=== PATIENT | male | born 1935 | race Caucasian/White ===

== ENCOUNTER 2017-02-23 19:36 | Emergency (ER) | payer OTHER ==
--- NOTE | 2017-02-23 19:45 | ED Physician Documentation ---
Abdominal Pain - HISTORIAN Historian: patient - HPI Chief Complaint: Abdominal Pain Onset: days ago (yesterday) Duration: waxing, waning Context: denies: out of country travel, bad food Severity: moderate Quality: pain, aching, burning Associated Symptoms: nausea, vomiting, coffee ground emesis (?), diarrhea (mild) . denies: fever, chills, bloody stools, grossly bloody stools Exacerbated by: nothing Relieved by: nothing Further Comments: yes (Patient states that he has been having some nausea/ vomiting, had some reddess brown emisis. Has vomited about 20 times today. Had some mild diarhea. Last BM was 2 hours ago and formed. No fever or chills noted. No trouble urinating noted.) - ROS CONST: no problems GI/: bloody stools. denies: black stools, bloody urine, dark urine - SOCIAL HX Smoking History: non-smoker Alcohol Use: none Drug Use: none - FAMILY HX Family History: other (dementia) - PAST HX Past History: GERD Ischemic Bowel Risk Factors: none Other History: other (GERDs, BPH, Allergic rhinnitis, L ingunial hernia, OA) Surgeries/Procedures: other (TURP, R inguinl hernia, tonsilectomy, adenoidectomy ) Immunizations: denies: influenza, pneumovax, zostavax Allergies/Adverse Reactions: Allergies Allergy/AdvReac Type Severity Reaction Status Date / Time No Known Allergies Allergy Verified 02/23/17 19:45 - VITAL SIGNS Vital Signs: Vital Signs Temp Pulse Resp BP Pulse Ox 97.9 F 85 16 153/63 98 02/23/17 21:15 02/23/17 21:15 02/23/17 21:15 02/23/17 21:15 02/23/17 21:15 - REVIEWED ASSESSMENTS Nursing Assessment Reviewed: Yes Vitals Reviewed: Yes Progress - Progress Progress: 20:07 Rectal done, stool guiac negative 21:11 Patient is still nauseated, no further vomiting noted. 22:38 Attempts made to insert NG tube but unsuccessful Oral gastric tube place and draining ED Results Lab/Radiology - Lab Results Lab Results: Lab Results 02/23/17 02/23/17 02/23/17 19:55 19:55 19:55 WBC 13.00 K/ul H K/ul (4.00-12.00) RBC 4.16 M/ul M/ul (3.90-5.20) Hgb 13.2 g/dL g/dL (12.0-18.0) Hct 39.9 % % (37.0-53.0) MCV 95.7 fl fl (80.0-100.0) MCH 31.7 pg pg (28.0-34.0) MCHC 33.1 g/dL g/dL (30.0-36.0) RDW 13.7 % % (11.3-14.3) Plt Count 238 K/mm3 K/mm3 (130-400) Neut % (Auto) 80.7 % H % (39.0-79.0) Lymph % (Auto) 13.1 % L % (16.0-50.0) [place] % (Auto) 3.7 % % (0.0-11.0) Eos % (Auto) 1.0 % % (0.0-6.8) Baso % (Auto) 0.3 (0.0-1.5) Neut # (Auto) 10.5 # k/uL H # k/uL (1.4-7.7) Lymph # (Auto) 1.7 # k/uL # k/uL (0.6-4.0) [place] # (Auto) 0.5 # k/uL # k/uL (0.0-0.9) Eos # (Auto) 0.1 # k/uL # k/uL (0.0-0.6) Baso # (Auto) 0.0 # k/uL # k/uL (0.0-0.5) Reactive Lymphs % 1.1 % % (0.0-5.0) Reactive Lymphs # 0.2 # k/uL # k/uL (0.0-0.8) PT 11.5 Seconds Seconds (9.4-11.6) INR 1.10 (0.9-1.2) Sodium 142 mmol/L mmol/L (137-145) Potassium 2.8 mmol/L L mmol/L (3.5-5.1) Chloride 94 mmol/L L mmol/L (98-107) Carbon Dioxide 39 mmol/L H mmol/L (22-30) BUN 21 mg/dL H mg/dL (9-20) Creatinine 0.80 mg/dL mg/dL (0.66-1.25) Estimated Creat Clear 55 Est GFR ( Amer) > 60 (60 - ) Est GFR (Non-Af Amer) > 60 (60 - ) Glucose 154 mg/dL H mg/dL (74-106) Calcium 9.5 mg/dL mg/dL (8.4-10.2) Total Bilirubin 0.5 mg/dL mg/dL (0.2-1.3) AST 35 U/L U/L (15-46) ALT 39 U/L U/L (13-69) Alkaline Phosphatase 125 U/L U/L (38-126) Total Protein 7.6 g/dL g/dL (6.3-8.2) Albumin 3.8 g/dL g/dL (3.5-5.0) - Orders Orders: ED Orders Category Date Time Status [employer] [Telemetry] NOW Care 02/23/17 20:[address] IV Lock 1T Care 02/23/17 19:[address] ABD & PELVIS W/ CON Stat Exams 02/23/17 Ordered CBC/PLATELET/DIFF Routine Lab 02/23/17 19:55 Completed CMP Routine Lab 02/23/17 19:55 Completed HEMOCCULT #1 Stat Lab 02/23/17 20:09 Ordered PT [PT-INR] Routine Lab 02/23/17 19:55 Completed 0.9 % Sodium Chloride [Normal Saline] 1,000 ml Med 02/23/17 19:47 Discontinued IV .STK-MED 0.9 % Sodium Chloride [Normal Saline] 1,000 ml Med 02/23/17 19:48 Discontinued IV Q1H 0.9 % Sodium Chloride [Sodium Chloride] 50 ml Med 02/23/17 19:47 Discontinued IV .STK-MED Ondansetron HCl/Pf [Zofran 4 mg/2 ml] Med 02/23/17 19:47 Discontinued 4 mg .ROUTE .STK-MED ONE Ondansetron HCl/Pf [Zofran 4 mg/2 ml] Med 02/23/17 19:47 Discontinued 4 mg IVP NOW ONE Pantoprazole Sodium [Protonix] Med 02/23/17 19:47 Discontinued 40 mg .ROUTE .STK-MED ONE Pantoprazole Sodium [Protonix] 40 mg Med 02/23/17 20:00 Ordered 0.9 % Sodium Chloride [Sodium Chloride] 50 ml IV DAILY Potassium Chloride 40 Meq/Ns [Potassium 40 Meq/Ns 1000 Med 02/23/17 20:15 Discontinued ml] 1,000 ml IV .STK-MED Potassium Chloride [Klor-Con 10 Meq/5 ml] 40 meq Med 02/23/17 20:15 Discontinued 0.9 % Sodium Chloride [Normal Saline] 1,000 ml IV Q1H Oxygen Daily Oxygen 02/23/17 20:15 Ordered Abdominal Pain Physical Exam - Physical Exam General Appearance: alert, mild distress EENT: scleral icterus RESPIRATORY: no resp distress, chest non-tender, breath sounds normal. No: wheezes, rales, rhonchi CVS: reg rate & rhythm, heart sounds normal, equal pulses, no murmur, no gallop ABDOMEN: soft, no distension, tenderness (over epigastric area), decreased BS. No: rigid, rebound, guarding MALE GENITAL: other (large left inguinal hernia,some discomfort with attempts to reduce) BACK: normal inspection SKIN: warm/dry, normal color EXTREMITIES: no edema NEURO: oriented X3, CN's nml as tested, mood/affect nml, cognition normal Vital Signs: Vital Signs Temp Pulse Resp BP Pulse Ox 97.9 F 85 16 153/63 98 02/23/17 21:15 02/23/17 21:15 02/23/17 21:15 02/23/17 21:15 02/23/17 21:15 Discharge Clincal Impression: Upper gastrointestinal bleed Decision to Admit: [id number] Date of Decison to Admit: 02/23/17 Decision Time: 20:38
[2017-02-23] MEDS ORDERED: ONDANSETRON HCL/PF 4 MG/ 2ML VIAL ONE (19:47)
[2017-02-23] MEDS ORDERED: 0.9 % SODIUM CHLORIDE 1,000 ML IV ONE ×2 (19:47→23:03)
[2017-02-23] MEDS ORDERED: 0.9 % SODIUM CHLORIDE 50 ML IV ONE (19:47)
[2017-02-23] MEDS ORDERED: PANTOPRAZOLE SODIUM INJ. 40 MG VIAL ONE (19:47)
[2017-02-23] MEDS: PANTOPRAZOLE SODIUM 40 MG in 0.9 % SODIUM CHLORIDE 50 ML IV SCH (19:50)
[2017-02-23] MEDS: 0.9 % SODIUM CHLORIDE 1,000 ML IV ONE (19:50)
[2017-02-23] MEDS: ONDANSETRON HCL/PF 4 MG/ 2ML VIAL IVP ONE (19:52)
[2017-02-23 20:02] LABS: BASOPHILS % 0.3 (0.0-1.5); MEAN CORPUSCULAR HEMOGLOBIN 31.7 pg (28.0-34.0); MEAN CORPUSCULAR VOLUME 95.7 fl (80.0-100.0); MONOCYTES % 3.7 % (0.0-11.0); NEUTROPHILS # 10.5 # k/uL (1.4-7.7)
[2017-02-23 20:06] LABS: eGFR (African) > 60; eGFR (Non-African) > 60
[2017-02-23] MEDS: 0.9 % SODIUM CHLORIDE 1,000 ML with POTASSIUM CHLORIDE 40 MEQ IV ONE ×2 (20:10)
[2017-02-23] MEDS ORDERED: POTASSIUM CHLORIDE 40 MEQ/NS 1,000 ML IV ONE (20:15)
[2017-02-23] MEDS ORDERED: 0.9 % SODIUM CHLORIDE 1,000 ML with POTASSIUM CHLORIDE 20 MEQ IV ONE ×2 (21:04)
[2017-02-23] MEDS: ONDANSETRON HCL/PF 4 MG/ 2ML VIAL IVP PRN (21:11)
--- NOTE | 2017-02-23 21:14 | History and Physical Report ---
History of Present Illnes - Health Maintenance Resuscitation Status: Resusciation Status Resuscitation Status Full Code Review of Systems - Medications/Allergies Allergies/Adverse Reactions: Allergies Allergy/AdvReac Type Severity Reaction Status Date / Time No Known Allergies Allergy Verified 02/23/17 19:45 Current Inpatient Medications: Current Inpatient Medications Pantoprazole Sodium 40 mg/ (Sodium Chloride) 50 mls @ 100 mls/hr IV DAILY [facility] Last Admin: 02/23/17 19:50 Dose: 100 mls/hr Pantoprazole Sodium 40 mg/ (Sodium Chloride) 50 mls @ 100 mls/hr IV BID [facility] Potassium Chloride 20 meq/ (Sodium Chloride) 1,010 mls @ 125 mls/hr IV Q1H ONE Stop: 02/24/17 05:08 Ondansetron HCl (Zofran 4 Mg/2 Ml) 4 mg IVP Q6 PRN PRN Reason: Nausea / Vomiting Last Admin: 02/23/17 21:11 Dose: 4 mg
[2017-02-23] MEDS ORDERED: POTASSIUM CHLORIDE IV ONE (22:38)
[2017-02-23] MEDS ORDERED: NS IV ONE (22:38)
[2017-02-23 23:10] VITALS: BP 155/71
--- NOTE | 2017-02-24 06:35 | Diagnostic Imaging Report ---
DUY MITCHELL [facility] [address] [facility] [address] [address] Report Submission Date: Feb 23, 2017 9:46:25 PM CDT Patient Study Name: FRANCY CONNELLY Date: Feb 23, 2017 8:53:16 PM CDT Modality Type: CT\SR Gender: M Description: CT ABD & PELVIS W/ CON : 35 Institution: [facility] Physician: DUY MITCHELL CT abdomen and pelvis with contrast Date of study: February 23, 2017. CLINICAL HISTORY: ABD. PAIN, VOMITING (Hx) / ABD. PAIN (DICOM Hx) TECHNIQUE: 5 mm contiguous axial images of the abdomen and pelvis with IV contrast. With ; 97 CC OMNIPAQUE 300 AT 2.5 CC A SECOND FINDINGS: No comparison studies are available. There are chronic emphysematous lung changes and a slight left lower lobe lung infiltrate. Abdomen: The stomach is massively distended and fluid-filled. The stomach appears to extend the entire length of the abdomen into the scrotum. There is also small bowel and colon as well as mesenteric vasculature in the scrotum. The outlet of the stomach is tapered and poorly visualized extending from the scrotum cephalad back into the abdomen. This likely represents obstruction at the gastric outlet related to herniation into the scrotum. The distal esophagus is fluid-filled. A 1 cm hypodensity in the hepatic dome most likely represents a hepatic cyst. The pancreas and spleen are normal in appearance. The gallbladder is unremarkable. The kidneys enhance appropriately and symmetrically. A 5 cm left renal cortical cyst is noted. The aorta is normal in caliber with scattered atherosclerotic calcifications evident. The small bowel is nondistended. There is no evidence of free air or free fluid. Pelvis: There is small bowel and colon in the scrotal hernia defect. The distal ureters and bladder are normal. There is no evidence of free air or free fluid. The rectum is filled with stool. There is rectosigmoid colon diverticulosis. The prostate is enlarged. The bones of the pelvis are intact. Left lumbar scoliosis and multilevel degenerative lumbar spondylosis is present. A right sacral Tarlov cyst is noted. IMPRESSION: Massively distended stomach herniated into the scrotum with low probably represents gastric outlet obstruction related to herniation into the scrotum along with small bowel and colon that is in the scrotal hernia defect. The critical results were communicated to Dr. Mitchell in the ER at 9:45 pm. Electronically signed on Feb 23, 2017 9:46:25 PM CDT by: Robyn PRYOR
--- NOTE | 2017-02-24 06:37 | Diagnostic Imaging Report ---
DUY EDDY [facility] [address] [facility] [address] [address] Report Submission Date: Feb 23, 2017 10:55:45 PM CDT Patient Study Name: FRANCY CONNELLY Date: Feb 23, 2017 10:03:46 PM CDT Modality Type: CR Gender: M Description: ABDOMEN : 35 Institution: [facility] Physician: DUY EDDY Abdomen KUB Date of Exam: February 23, 2017. History: tUBE PLACEMENT (Hx) / NG TUBE PLACEMENT (DICOM Hx) / NG TUBE PLACEMENT (Pt comments) Findings: The to radiographs are provided. One is timed 22:03 with a tube coiled in the trachea. A 2nd is timed 22:42 with a tube in the stomach extending into the left pelvis. Massive distention of the stomach is noted. There is contrast in the renal collecting systems and bladder. Left lumbar scoliosis and multilevel degenerative lumbar spondylosis is present. Impression: Nasogastric tube in the stomach on the radiograph timed 22:42. Electronically signed on Feb 23, 2017 10:55:45 PM CDT by: Robyn PRYOR
[2017-02-24] MEDS ORDERED: PANTOPRAZOLE SODIUM 40 MG in 0.9 % SODIUM CHLORIDE 50 ML IV SCH (09:00)
== END 2017-02-23 23:00 | disposition other institution (70) ==
LOC: ED 19:36 → SUPCPDRO 19:36 → UNDOADMIN 20:43 → UNDODISIN 20:43 → SOUTH 20:43
DX: K92.2 Gastrointestinal hemorrhage, unspecified (principal)
CPT/HCPCS: 74000; 74177; 80053; 85025; 85610; J2405; J3480; J7030; 96361; 96374; 96375; 99284; S1016

== ENCOUNTER 2017-07-04 15:28 | Outpatient (CLI) | payer OTHER ==
[2017-06-01 14:49] VITALS: BP 110/51
== END 2017-07-04 15:30 ==
LOC: CARD 15:28
PROVIDERS: ATTEND Internal Medicine Cardiovascular Disease
DX: I48.91 Unspecified atrial fibrillation (principal); I50.9 Heart failure, unspecified
CPT/HCPCS: G0463

== ENCOUNTER 2017-07-24 14:22 | Outpatient (CLI) | payer OTHER ==
[2017-06-01 14:49] VITALS: BP 110/51
== END 2017-07-24 14:23 ==
LOC: RAD 14:22
PROVIDERS: ATTEND Family Medicine
DX: T17.920A Food in respiratory tract, part unspecified causing asphyxiation, initial encounter (principal); X58.XXXA Exposure to other specified factors, initial encounter; Y93.9 Activity, unspecified; Y92.9 Unspecified place or not applicable